=== PATIENT | male | born 1950 | race Caucasian/White ===

== ENCOUNTER 2018-05-15 02:07 | Emergency (ER) | payer OTHER, MEDICARE ==
[2018-05-15 02:14] VITALS: BP 136/93
--- NOTE | 2018-05-15 02:26 | EDPHY ---
H & P Stated Complaint: L LEG CRAMP/SENT FROM UROLOGIST TO R/O DVT SX MON Time Seen by Provider: 05/15/18 02:34 HPI/ROS: HPI CHIEF COMPLAINT: Left leg cramps. HISTORY OF PRESENT ILLNESS: Very pleasant 68-year-old male, is otherwise healthy does have a history of kidney stones. He is due to see his urologist today for stent removal. Left side. However he has been having some leg cramps. Mainly in his left calf, on his left knee. Was told by his urologist if he continues to given problems seizure down ultrasound rule out DVT. Patient has never had a DVT. Denies chest pain or shortness of breath. Not currently have a leg cramp but has been having some cramps in both of his legs but worse on his left leg. Past Medical History: Kidney stones Past Surgical History: No recent surgery Social History: Denies drugs alcohol tobacco. Family History: Noncontributory. ROS REVIEW OF SYSTEMS: 10 Systems were reviewed and negative with the exception of the elements mentioned in the history of present illness. Exam Constitutional nontoxic, triage nursing summary reviewed, vital signs reviewed , awake/alert. Eyes normal conjunctivae and sclera, EOMI, PERRLA. HENT normal inspection, atraumatic, moist mucus membranes, no epistaxis, neck supple/ no meningismus, no raccoon eyes. Respiratory clear to auscultation bilaterally, normal breath sounds, no respiratory distress, no wheezing. Cardiovascular rate normal, regular rhythm, no murmur, no edema, distal pulses normal. Gastrointestinal soft, non-tender, no rebound, no guarding, normal bowel sounds, no distension, no pulsatile mass. Genitourinary no CVA tenderness. Musculoskeletal left lower extremity: Neurovascular intact good distal pulse, good cap refill, no abnormal swelling, no significant tenderness on exam. no midline vertebral tenderness, full range of motion, no calf swelling, no tenderness of extremities, no meningismus, good pulses, neurovascularly intact. Skin pink, warm, & dry, no rash, skin atraumatic. Neurologic awake, alert and oriented x 3, AAOx3, moves all 4 extremities equally, motor intact, sensory intact, CN II-XII intact, normal cerebellar, normal vision, normal speech. Psychiatric normal mood/affect. Heme/Lymph/Immune no lymphadenopathy. Differential Diagnosis: Includes but is not limited to in a particular order left leg cramp, DVT, Lund cyst. Medical Decision Making: Plan for this patient ultrasound left lower extremity rule out DVT. Re-evaluation: Ultrasound reveals no DVT. Called to me by Dr. Lyles. Recommend patient drinks lots of fluids stay well-hydrated. Return precautions discussed with him return if worsening pain questions or concerns. Source: Patient - Personal History Current Tetanus Diphtheria and Acellular Pertussis (TDAP): Yes - Medical/Surgical History Hx Asthma: No Hx Chronic Respiratory Disease: No Hx Diabetes: No Hx Cardiac Disease: No Hx Renal Disease: No Hx Cirrhosis: No Hx Alcoholism: No Hx HIV/AIDS: No Hx Splenectomy or Spleen Trauma: No Other PMH: L KIDNEY STONE SX - Social History Smoking Status: Never smoked Constitutional: Initial Vital Signs Temperature (C) 36.8 C 05/15/18 02:11 Heart Rate 60 05/15/18 02:11 Respiratory Rate 16 05/15/18 02:11 Blood Pressure 136/93 H 05/15/18 02:11 O2 Sat (%) 93 05/15/18 02:11 O2 Delivery Mode Room Air Allergies/Adverse Reactions: No Known Allergies Allergy (Verified 05/15/18 02:14) Home Medications: Medication Instructions Recorded Miscellaneous Medical Supply [NO 1 ea MISC AD 01/27/13 HOME MEDS] Advil 05/15/18 Flomax 05/15/18 Tylenol 05/15/18 Vicodin 5-300 mg Tablet 05/15/18 Departure - Departure Disposition: Home, Routine, Self-Care Clinical Impression: Leg cramps Condition: Good Instructions: Leg Cramps (ED), Muscle Cramp (ED) Additional Instructions: 1. Make sure to drink lots of fluids. Stay well-hydrated. 2. Return if worsening symptoms questions or concerns.
== END 2018-05-15 03:02 | disposition home or self-care (01) ==
DX: R25.2 Cramp and spasm (principal)